=== PATIENT | male | born 1955 | race African-American/Black ===

== ENCOUNTER 2021-08-27 11:17 | Emergency (ER) | payer OTHER ==
[~2021-08-27] VITALS: Ht 193 cm; Wt 97.1 kg
[2021-08-27 13:45] VITALS: BP 162/82
[2021-08-27 13:48] LABS: Urine Bacteria MANY /hpf (None Seen); Urine Blood 1+ /uL (Negative); Urine Mucus FEW (None Seen); Urine Specific Gravity 1.017 (1.001-1.035); Urine WBC 818 /hpf (0 - 3); Urine WBC Clumps PRESENT /hpf (None Seen)
== END 2021-08-27 13:42 | disposition home or self-care (01) ==
LOC: ER 11:17
DX: T83.091A Other mechanical complication of indwelling urethral catheter, initial encounter (principal); I10 Essential (primary) hypertension
CPT/HCPCS: 81001

== ENCOUNTER 2022-11-02 08:38 | Inpatient (IN) | payer OTHER ==
[~2022-11-02] VITALS: Ht 193 cm; Wt 90.9 kg
[2022-11-02] MEDS ORDERED: SODIUM CHLORIDE 0.9% 1,000 ML IV ONE (09:30)
[2022-11-02] MEDS ORDERED: LORazepam 2MG/ML-1ML VIAL IV ONE (09:30)
[2022-11-02 10:35] LABS: Basophils # (auto) 0.1 10 ^3/uL (0-0.2); Basophils % (auto) 1.1 % (0.0-2.0); Eosinophils # (auto) 0.2 10 ^3/uL (0-0.8); Eosinophils % (auto) 3.3 % (0.0-7.0); Hematocrit 26.2 % (41.0-53.0); Hemoglobin 8.2 g/dL (13.5-17.5); Lymphocytes % (auto) 13.3 % (10.0-50.0); Mean Corpuscular Hemoglobin 28.7 pg (28.0-32.0); Mean Corpuscular Hgb Conc. 31.4 g/dL (32.0-36.0); Mean Corpuscular Volume 91.4 fL (80.0-100.0); Monocytes # (auto) 0.7 10 ^3/uL (0-1.3); Monocytes % (auto) 9.3 % (0.0-12.0); Neutrophils # (auto) 5.5 10 ^3/uL (1.6-8.6); Red Blood Cells 2.86 10^6/uL (4.5-5.90); Red Cell Distribution Width 16.7 % (11.8-14.3); White Blood Cell 7.5 10^3/uL (4.4-10.8)
[2022-11-02 10:38] LABS: Urine Bacteria NONE SEEN /hpf (None Seen); Urine Blood 2+ /uL (Negative)
[2022-11-02 10:59] LABS: Alcohol, Urine < 3.0 mg/dL (0-10); Amphetamine Screen, Urine NEGATIVE (NEGATIVE); Barbiturate Scree,Urine NEGATIVE (NEGATIVE); Benzodiazephine Screen, Urine NEGATIVE (NEGATIVE); Cannabinoid Screen, Urine NEGATIVE (NEGATIVE); Cocaine Screen, Urine NEGATIVE (NEGATIVE); Opiate Scree,Urine NEGATIVE (NEGATIVE); Phencyclidine Screen, Urine NEGATIVE (NEGATIVE)
[2022-11-02 11:28] LABS: Urine WBC 25 /hpf (0 - 3)
[2022-11-02 11:39] LABS: Albumin 3.5 g/dL (3.4-5.0); Calcium 8.1 mg/dL (8.5-10.1)
[2022-11-02 11:48] LABS: BUN/Creatinine Ratio 5.2; Bilirubin, Total 0.4 mg/dL (0.2-1.0); Total Protein 7.9 g/dL (6.4-8.2)
[2022-11-02 11:52] LABS: Potassium 6.2 mmol/L (3.5-5.1)
[2022-11-02] MEDS ORDERED: ALBUTEROL SULF 2.5 MG/0.5ML(0.5%) NEB SOLN NEB ONE (12:15)
[2022-11-02] MEDS ORDERED: SODIUM BICARBONATE 8.4 % INJ 50ML VIAL IV ONE (12:15)
[2022-11-02] MEDS ORDERED: CALCIUM CHL 100MG/ML 1,000 MG in D5W 5% 100 ML IV ONE (12:15)
[2022-11-02] MEDS ORDERED: cefTRIAXone 1GM/50ML D5W 50 ML IV ONE (12:15)
[2022-11-02] MEDS ORDERED: FUROSEMIDE 40 MG/4 ML VIAL IV ONE (12:15)
[2022-11-02] MEDS ORDERED: DOCUSATE SOD 100 MG CAP PO PRN (13:30)
[2022-11-02] MEDS ORDERED: HYDROcodone-ACET 5/325MG TAB PO PRN (13:30)
[2022-11-02] MEDS ORDERED: MORPHINE SULFATE INJ 2 MG/ml SYRG IV PRN (13:30)
[2022-11-02] MEDS ORDERED: NITROGLYCERIN 0.4 MG SL TAB SL PRN (13:30)
[2022-11-02] MEDS ORDERED: ACETAMINOPHEN 325 MG TAB PO PRN (13:30)
[2022-11-02] MEDS ORDERED: ONDANSETRON HCL 4 MG/2 ML VIAL IV PRN (13:30)
[2022-11-02] MEDS ORDERED: SODIUM CHL 0.9% 1000 ML BAG XX ONE (14:45)
[2022-11-02 17:24] LABS: BUN/Creatinine Ratio 4.7; Calcium 9.4 mg/dL (8.5-10.1); Potassium 4.1 mmol/L (3.5-5.1)
[2022-11-03] VITALS (7 sets, daily range): BP systolic 137–168; BP diastolic 82–97
[2022-11-03] MEDS ORDERED: ALBU108A5 IN (05:09)
[2022-11-03] MEDS ORDERED: AZIT250T9 PO (05:09)
[2022-11-03] MEDS ORDERED: LEVO250T69 PO (05:09)
[2022-11-03] MEDS ORDERED: MAGN400T40 PO (05:09)
[2022-11-03 09:38] LABS: Basophils # (auto) 0.1 10 ^3/uL (0-0.2); Eosinophils # (auto) 0.5 10 ^3/uL (0-0.8); Hemoglobin 7.9 g/dL (13.5-17.5); Monocytes # (auto) 0.7 10 ^3/uL (0-1.3); Neutrophils # (auto) 2.6 10 ^3/uL (1.6-8.6); Nucleated Red Blood Cells % 0.1 %; White Blood Cell 4.9 10^3/uL (4.4-10.8)
[2022-11-03 09:40] LABS: Basophils % (auto) 1.1 % (0.0-2.0); Eosinophils % (auto) 10.2 % (0.0-7.0); Lymphocytes % (auto) 21.2 % (10.0-50.0); Mean Corpuscular Hemoglobin 28.3 pg (28.0-32.0); Mean Corpuscular Hgb Conc. 31.7 g/dL (32.0-36.0); Mean Corpuscular Volume 89.2 fL (80.0-100.0); Monocytes % (auto) 14.5 % (0.0-12.0); Red Blood Cells 2.81 10^6/uL (4.5-5.90); Red Cell Distribution Width 16.8 % (11.8-14.3)
[2022-11-03 09:50] LABS: Calcium 8.4 mg/dL (8.5-10.1); Potassium 4.9 mmol/L (3.5-5.1)
[2022-11-03 09:53] LABS: BUN/Creatinine Ratio 4.3; Bilirubin, Total 0.6 mg/dL (0.2-1.0); Total Protein 7.2 g/dL (6.4-8.2)
[2022-11-03] MEDS ORDERED: cefTRIAXone 1GM/50ML D5W 50 ML IV ONE (16:00)
[2022-11-03] MEDS ORDERED: amLODIPine BESYLATE 5 MG TAB PO ONE (16:00)
[2022-11-03] MEDS ORDERED: LOSARTAN POTASSIUM 50 MG TAB PO ONE (16:00)
[2022-11-03] MEDS: METOPROLOL TARTRATE 50 MG TAB PO SCH (22:13)
[2022-11-04] VITALS (7 sets, daily range): BP systolic 127–160; BP diastolic 70–99
[2022-11-04] MEDS ORDERED: SODIUM CHL 0.9% 1000 ML BAG XX ONE (07:00)
[2022-11-04 07:19] LABS: Basophils # (auto) 0 10 ^3/uL (0-0.2); Eosinophils # (auto) 0.6 10 ^3/uL (0-0.8); Eosinophils % (auto) 13.6 % (0.0-7.0); Hematocrit 26.8 % (41.0-53.0); Hemoglobin 8.7 g/dL (13.5-17.5); Lymphocytes % (auto) 21.8 % (10.0-50.0); Mean Corpuscular Hemoglobin 29.2 pg (28.0-32.0); Mean Corpuscular Hgb Conc. 32.6 g/dL (32.0-36.0); Mean Corpuscular Volume 89.6 fL (80.0-100.0); Monocytes # (auto) 0.8 10 ^3/uL (0-1.3); Monocytes % (auto) 16.3 % (0.0-12.0); Neutrophils # (auto) 2.2 10 ^3/uL (1.6-8.6); Neutrophils % (auto) 47.3 % (37.0-80.0); Red Blood Cells 2.99 10^6/uL (4.5-5.90); Red Cell Distribution Width 16.3 % (11.8-14.3); White Blood Cell 4.7 10^3/uL (4.4-10.8)
[2022-11-04 07:34] LABS: Potassium 4.7 mmol/L (3.5-5.1)
[2022-11-04 07:43] LABS: BUN/Creatinine Ratio 4.3; Bilirubin, Total 0.4 mg/dL (0.2-1.0); Total Protein 7.4 g/dL (6.4-8.2)
[2022-11-04] MEDS ORDERED: cefTRIAXone 1GM/50ML D5W 50 ML IV SCH (09:00)
[2022-11-04] MEDS ORDERED: LOSARTAN POTASSIUM 50 MG TAB PO SCH (10:00)
[2022-11-04] MEDS ORDERED: amLODIPine BESYLATE 5 MG TAB PO SCH (10:00)
[2022-11-04] MEDS: METOPROLOL TARTRATE 50 MG TAB PO SCH (11:38)
[2022-11-04] MEDS ORDERED: AML5T PO (15:45)
[2022-11-04] MEDS ORDERED: LISI20TA28 PO (15:46)
[2022-11-04] MEDS ORDERED: AMOX-277 PO (15:46)
[2022-11-04] MEDS ORDERED: MET50T PO (15:46)
[2022-11-04] MEDS ORDERED: LISINOPRIL 20 MG TAB PO ONE (16:00)
[2022-11-04] MEDS ORDERED: EPOETIN ALFA-EPBX 4,000 UNIT/ML VIAL SC ONE (21:00)
[2022-11-05] MEDS ORDERED: LISINOPRIL 20 MG TAB PO SCH (10:00)
== END 2022-11-04 20:45 | disposition home or self-care (01) | DRG 640 ==
LOC: EDBD 08:38 → ER 08:38 → EDUNIT# 08:38 → TELE 13:21 → TELE-WESTW 11-03 03:36
PROVIDERS: ADMIT Internal Medicine; ATTEND Internal Medicine
PROC: 5A1D70Z Performance of Urinary Filtration, Intermittent, Less than 6 Hours Per Day (ICD-10-PCS; principal; 2022-11-02)
PROC: 5A1D70Z Performance of Urinary Filtration, Intermittent, Less than 6 Hours Per Day (ICD-10-PCS; 2022-11-04)
DX: E87.70 Fluid overload, unspecified (principal); G93.41 Metabolic encephalopathy; N18.6 End stage renal disease; I21.A1 Myocardial infarction type 2; I13.2 Hypertensive heart and chronic kidney disease with heart failure and with stage 5 chronic kidney disease, or end stage renal disease; N39.0 Urinary tract infection, site not specified; I50.9 Heart failure, unspecified; D63.8 Anemia in other chronic diseases classified elsewhere; E87.5 Hyperkalemia; E87.20 Acidosis, unspecified; R09.89 Other specified symptoms and signs involving the circulatory and respiratory systems; Z20.822 Contact with and (suspected) exposure to COVID-19; E11.22 Type 2 diabetes mellitus with diabetic chronic kidney disease; E83.39 Other disorders of phosphorus metabolism; J44.9 Chronic obstructive pulmonary disease, unspecified; F17.210 Nicotine dependence, cigarettes, uncomplicated; Z91.15 Patient's noncompliance with renal dialysis; Z99.2 Dependence on renal dialysis
CPT/HCPCS: 36415; 71045; 80048; 80053; 80307; 81001; 83735; 83880; 84484; 85025; 87040; 87081; 87340; 87426; 90935; 93005; 93306; 94640; 96361; 96365; 96367; 96375; 99291; G0378; J0696; J1642; J7060